=== PATIENT | female | born 1970 | race Caucasian/White ===

== ENCOUNTER 2018-06-20 05:29 | Inpatient (IN) | payer BC, OTHER ==
[2018-06-11 14:47] LABS: HEMATOCRIT 42.4 % (37.0-47.0); HEMOGLOBIN 14.9 gm/dL (12.0-15.0); MCH 32.9 pg (26.0-34.0); MCHC 35.2 g/dL (28.0-37.0); MCV 93.2 fL (80.0-100.0); RBC 4.55 mil/uL (4.20-5.00); RDW 13.5 % (10.5-14.5); WBC 10.5 thou/uL (4.0-11.0)
[2018-06-11 14:48] LABS: URINE BILIRUBIN NEGATIVE (Negative); URINE BLOOD NEGATIVE (Negative); URINE CLARITY CLEAR; URINE COLOR YELLOW; URINE GLUCOSE-RANDOM* NEGATIVE (Negative); URINE KETONES NEGATIVE (Negative); URINE NITRITE-REFLEX NEGATIVE (Negative); URINE PROTEIN (DIPSTICK) NEGATIVE (Negative); URINE SPECIFIC GRAVITY >= 1.030 (1.005-1.035); URINE UROBILINOGEN 0.2 E.U./dl (0.2-1.0)
[2018-06-11 14:49] LABS: URINE LEUKOCYTES-REFLEX TRACE (Negative)
[2018-06-11 14:56] LABS: ALBUMIN 3.9 g/dL (3.4-5.0); CALCIUM 9.6 mg/dL (8.5-10.1); CREATININE 0.8 mg/dL (0.6-1.0); POTASSIUM 4.1 mmol/L (3.5-5.1)
[2018-06-11 15:12] LABS: INR 1.1; PROTIME 11.1 Seconds (9.3-11.4)
[2018-06-20] VITALS (9 sets, daily range): BP systolic 96–129; BP diastolic 53–90
[~2018-06-20] VITALS: Ht 152.4 cm; Wt 101.2 kg
--- NOTE | ~2018-06-20 | O ---
[facility] [place] [address] OPERATIVE REPORT Name: DEMARCO ROBERT Room #: 453-P [facility] M.R.#: [id number] Admission: 06/20/18 Attend Phys: Yefri Norman MD Discharge: 06/22/18 Date of : 74 Report #: [id number] THIS REPORT FOR: //name// CC: Clifton Geoff Norman DATE OF SERVICE: 06/20/2018 PREOPERATIVE DIAGNOSIS: Right hip osteoarthritis. POSTOPERATIVE DIAGNOSIS: Right hip osteoarthritis. PROCEDURE: Right total hip arthroplasty. SURGEON: Yefri Norman MD. EXCELLENCE CONSULTANT: Eneida Vallejo PA-C. INDICATIONS FOR EXCELLENCE CONSULTANT: Throughout the case, extensive retraction and manipulation of the hip was required. This was afforded to me by my business development assistant. ANESTHESIA: LMA. IMPLANTS: [employer] size 8 standard offset Synergy press-fit stem with a size 48 R3 acetabular cup with 2 acetabular screws and a size 32+0 Oxinium head. ESTIMATED BLOOD LOSS: 250 mL. COMPLICATIONS: None. SPECIMENS: None. CONDITION UPON LEAVING THE OPERATING ROOM: Stable. INDICATION FOR PROCEDURE: The patient is a 48-year-old female with severe right hip osteoarthritis. She had failed conservative treatment for this and after discussion with her, she elected for right total hip arthroplasty. DESCRIPTION OF PROCEDURE: Risks, benefits, alternatives, complications were discussed in detail with the patient including but not limited to risk of anesthesia, risk of damage to nerves, arteries, blood vessels, risk for infection, bleeding, risk for continued hip pain, leg length discrepancy, instability and need for reoperation. Informed consent was obtained from the patient. Right hip was appropriately marked in the preoperative holding area. IV clindamycin was given for preoperative antibiotics. She was brought to the operating room and placed in the supine position on operating table and general [address] [address] OPERATIVE REPORT Name: DEMARCO ROBERT Room #: 453-P [facility] M.R.#: [id number] Admission: 06/20/18 Attend Phys: Yefri Norman MD Discharge: 06/22/18 Date of : 74 Report #: [id number] anesthesia was induced without complication. She was then placed in the left lateral decubitus position with the right hip uppermost. Right hip and lower extremity were prepped and draped in normal sterile fashion. Timeout was performed properly identifying the patient, procedure as well as the instrumentation and the implants. All in the operating room were in agreement. Standard posterior approach to the hip was made with 10 blade through the skin. Dissection was taken down to the fascia with Bovie cautery and this was cleaned off with Murray elevator. Fresh 10 blade was used to make a fascial incision. This was taken proximally and distally with curved Ortiz scissor. Charnley retractor was placed. Trochanteric bursa was taken down with Bovie cautery. Piriformis tendon was identified, tagged and taken down with Bovie. Short external rotators were also taken down with Bovie cautery. Capsulotomy was made and capsule ends were tagged for later repair. Hip was dislocated. There was extensive osteoarthritic change of the femoral head. Femoral neck cut was made 1 cm proximal to lesser trochanter based on preoperative templating and the femoral head was removed. Deep acetabular retractors were placed. The labrum was removed sharply. Pulvinar was removed with Bovie cautery. Acetabulum was then sequentially reamed up to a size 48, at which point, there was excellent bleeding cancellous bone. A size 47 acetabular trial cup was placed and found to have a good fit. Final size 48 R3 acetabular cup was then placed. Two acetabular screws were placed for backup fixation. Polyethylene liner for 32 head was placed. Attention was then turned to the femur. This was reamed and broached up to a size 8, at which point, the size 8 broach was stable. This was trialed with a standard offset neck and a 32+0 head. Hip was reduced, taken through range of motion, found to be stable, found to have equal leg lengths. Hip was dislocated. Broach was removed and final size 8 standard offset Synergy press-fit stem was placed. This was trialed again with a 32+0 head. Hip was reduced, taken through range of motion, found to be stable, found to have equal leg lengths. Hip was dislocated one last time and a final size 32+0 Oxinium head was placed. Hip was reduced, taken through range of motion, found to be stable, found to have equal leg lengths. After this, the hip was thoroughly irrigated with normal saline. Periarticular injection consisting of morphine, ropivacaine, epinephrine and Toradol was placed around the hip joint capsule. The capsule and piriformis were repaired with 0 FiberWire. The fascia was closed with 0 Vicryl, skin was closed with 2-0 Vicryl, 3-0 Monocryl and a LEIDY dressing was applied. The patient tolerated this procedure well and went to recovery room under care of anesthesia postoperatively. <ELECTRONICALLY SIGNED> By: Yefri Norman MD 06/27/18 1434 [id number] Yefri Norman MD /nt
[~2018-06-20 05:29] MED LIST: ADULT ASPIRIN81 MG PO; APAP650 PO; CALCIUM 600 +1 EAC2 PO; CIPRO250 M1 PO; CYMBALTA60 MG PO; FISH OIL 1,001000 M2 PO; GUAIFENESIN400 MG; IBUPROFEN 200200 M1 PO; MELATONIN10 M1 PO; MULTI VITAMIN1 EACH PO; SINGULAIR 10 MG10 M1 PO; SYNTHROID175 MCG PO; VITAMIN D32000 UNIT PO
[2018-06-21 06:20] LABS: HEMATOCRIT 27.3 % (37.0-47.0); HEMOGLOBIN 9.4 gm/dL (12.0-15.0); MCH 32.4 pg (26.0-34.0); MCHC 34.5 g/dL (28.0-37.0); MCV 93.9 fL (80.0-100.0); RBC 2.9 mil/uL (4.20-5.00); RDW 13.1 % (10.5-14.5); WBC 11.1 thou/uL (4.0-11.0)
[2018-06-21 07:49] VITALS: BP 100/61
[2018-06-21 15:15] VITALS: BP 117/70
[2018-06-21 19:24] VITALS: BP 110/68
[2018-06-22 07:03] LABS: HEMOGLOBIN 8.7 gm/dL (12.0-15.0); MCHC 34.8 g/dL (28.0-37.0); MCV 94.8 fL (80.0-100.0); RBC 2.64 mil/uL (4.20-5.00); RDW 13.1 % (10.5-14.5); WBC 9.6 thou/uL (4.0-11.0)
[2018-06-22 08:00] VITALS: BP 109/60
[2018-06-22] MEDS ORDERED: TRI-BUFFERED A325 M1 PO (12:40)
[2018-06-22] MEDS ORDERED: NEURONTIN 300300 M1 PO (12:40)
[2018-06-22 12:53] VITALS: BP 109/60
== END 2018-06-22 15:10 | disposition home or self-care (01) | DRG 470 ==
LOC: TBA 05:29 → PRE 06:22 → 4W 18:07 → ENTRNSPT 06-22 15:02 → EDTRNSPTSTS 06-22 15:04 → 4W 06-22 15:10 → PRE 09-05 16:13
PROVIDERS: Orthopaedic Surgery
PROC: 0SR906A Replacement of Right Hip Joint with Oxidized Zirconium on Polyethylene Synthetic Substitute, Uncemented, Open Approach (ICD-10-PCS; principal; 2018-06-20)
DX: M17.12 Unilateral primary osteoarthritis, left knee (principal); M16.11 Unilateral primary osteoarthritis, right hip; Z79.82 Long term (current) use of aspirin; Z79.899 Other long term (current) drug therapy; Z88.0 Allergy status to penicillin
CPT/HCPCS: 10047; 50010; 50101; 50382; 50414; 51771; 53000; 53078; 53368; 54118; 56524; 56527; 56528; 56530; 57095; 57103; 62110; 62900; 70005